=== PATIENT | male | born 1985 | race African-American/Black ===

== ENCOUNTER 2017-05-13 01:00 | Emergency (ER) | payer SELFPAY ==
[~2017-05-13] VITALS: Ht 182.9 cm; Wt 127.4 kg
[2017-05-13 02:58] LABS: HEMATOCRIT 42.6 % (38.0-50.0); MCH 29.7 PG (29.0-34.0); MCHC 33.6 G/DL (30.0-36.0); MCV 88.6 FL (86-99); MEAN PLAT.VOLUME 9.3 uM^3 (9.0-12.4); PLATELET COUNT 282 K/uL (156-360); RBC DIS.WIDTH-CV 12.3 % (11.8-14.6); RBC DIS.WIDTH-SD 40.5 % (39-53); RED BLOOD COUNT 4.81 M/uL (4.00-5.50); WHITE BLOOD COUNT 8.6 K/uL (4.1-10.2)
[2017-05-13 03:03] LABS: PROTHROMBIN TIME 10.6 SEC (10.2-12.9)
[2017-05-13 03:11] LABS: CHLORIDE 106 mEq/L (99-109); POTASSIUM 3.9 mEq/L (3.7-5.4); SODIUM 139 mEq/L (136-147)
[2017-05-13 03:13] LABS: GLUCOSE 111 mg/dL (70-99)
[2017-05-13 03:14] LABS: ANION GAP 12 MEQ/L (2-14)
[2017-05-13 03:15] LABS: TOTAL BILIRUBIN 0.1 mg/dL (0.0-1.0)
[2017-05-13 03:16] LABS: SERUM ETHYL ALCOHOL 143 mg/dL
[2017-05-13 03:17] LABS: ALKALINE PHOSPHATASE 49 IU/L (3-129); GFR ESTIMATE (CALCULATED) > 59 mL/min/
[2017-05-13 03:18] LABS: UREA NITROGEN (BUN) 10 mg/dL (9-23)
[2017-05-13 04:29] VITALS: BP 146/80
== END 2017-05-13 04:48 | disposition short-term general hospital (02) ==
LOC: EME → EDBD 01:00 → TRA 01:00 → EME 01:00 → TRA 04:48
PROVIDERS: Physician Assistant
PROC: 3E0234Z Introduction of Serum, Toxoid and Vaccine into Muscle, Percutaneous Approach (ICD-10-PCS; principal; 2017-05-13)
DX: S02.411A LeFort I fracture, initial encounter for closed fracture (principal); S02.412A LeFort II fracture, initial encounter for closed fracture; S02.19XA Other fracture of base of skull, initial encounter for closed fracture; S02.2XXA Fracture of nasal bones, initial encounter for closed fracture; S02.32XA Fracture of orbital floor, left side, initial encounter for closed fracture; S02.40CA Maxillary fracture, right side, initial encounter for closed fracture; S01.511A Laceration without foreign body of lip, initial encounter; S03.2XXA Dislocation of tooth, initial encounter; F10.129 Alcohol abuse with intoxication, unspecified; Y90.6 Blood alcohol level of 120-199 mg/100 ml; Y09 Assault by unspecified means; Y07.9 Unspecified perpetrator of maltreatment and neglect; F17.200 Nicotine dependence, unspecified, uncomplicated
CPT/HCPCS: 70450; 70486; 72125; 80053; 85027; 85610; 99281; 99285; G0480; J0690; J1580; J7050

== ENCOUNTER 2017-11-05 06:59 | Emergency (ER) | payer SELFPAY ==
[~2017-11-05] VITALS: Ht 190.5 cm; Wt 130.6 kg
[2017-11-05] MEDS ORDERED: XARELTO1 EACH PO (08:13)
[2017-11-05] MEDS ORDERED: ELIQUIS5 M1 PO (08:20)
[2017-11-05 08:44] VITALS: BP 126/102
== END 2017-11-05 08:45 | disposition home or self-care (01) ==
LOC: EME 06:59
DX: I82.412 Acute embolism and thrombosis of left femoral vein (principal); I82.432 Acute embolism and thrombosis of left popliteal vein
CPT/HCPCS: 93971; 99281; 99284

== ENCOUNTER 2017-11-14 06:29 | Emergency (ER) | payer SELFPAY ==
[~2017-11-14] VITALS: Ht 190.5 cm; Wt 134.7 kg
[~2017-11-14 06:29] MED LIST: ELIQUIS5 M1 PO; XARELTO1 EACH PO
[2017-11-14 06:36] VITALS: BP 165/95
[2017-11-14] MEDS ORDERED: ELIQUIS5 MG PO (07:54)
== END 2017-11-14 08:18 | disposition home or self-care (01) ==
LOC: EME 06:29
DX: I82.402 Acute embolism and thrombosis of unspecified deep veins of left lower extremity (principal); R07.9 Chest pain, unspecified; M79.602 Pain in left arm; Z79.01 Long term (current) use of anticoagulants; Z86.718 Personal history of other venous thrombosis and embolism
CPT/HCPCS: 99281; 99284

== ENCOUNTER 2017-12-17 14:33 | Inpatient (IN) | payer SELFPAY ==
[~2017-12-17] VITALS: Ht 190.5 cm; Wt 132.0 kg
[~2017-12-17 14:33] MED LIST changes: +ELIQUIS5 MG PO
[2017-12-17 16:55] LABS: HEMATOCRIT 40.1 % (38.0-50.0); HEMOGLOBIN 13.7 G/DL (12.5-16.6); MCHC 34.2 G/DL (30.0-36.0); MCV 87.7 FL (86-99); PLATELET COUNT 307 K/uL (156-360); RBC DIS.WIDTH-CV 13.2 % (11.8-14.6); RBC DIS.WIDTH-SD 42.5 % (39-53); RED BLOOD COUNT 4.57 M/uL (4.00-5.50); WHITE BLOOD COUNT 8.3 K/uL (4.1-10.2)
[2017-12-17 17:08] LABS: CHLORIDE 105 mEq/L (99-109); POTASSIUM 3.9 mEq/L (3.7-5.4); SODIUM 137 mEq/L (136-147)
[2017-12-17 17:10] LABS: GLUCOSE 88 mg/dL (70-99)
[2017-12-17 17:14] LABS: CREATININE 1.1 mg/dL (0.6-1.3); GFR ESTIMATE (CALCULATED) > 59 mL/min/ (58.99-99999)
[2017-12-17 17:15] LABS: UREA NITROGEN (BUN) 10 mg/dL (9-23)
[2017-12-17 17:16] LABS: PTT 31.6 SEC (25-37)
[2017-12-17] MEDS ORDERED: TYLENOL EXTRA500 MG PO (18:26)
[2017-12-17] MEDS ORDERED: EPSOM SALT120 GM TP (18:27)
[2017-12-17 20:01] VITALS: BP 140/81
[2017-12-17 23:56] VITALS: BP 128/69
[2017-12-18] VITALS (7 sets, daily range): BP systolic 125–140; BP diastolic 58–98
[2017-12-18 08:58] LABS: BASOPHIL (%) 1.3 % (0-1); BASOPHIL COUNT 0.1 K/uL (0-0.1); EOSINOPHIL (%) 2.9 % (0-5); EOSINOPHIL COUNT 0.2 K/uL (0-0.3); HEMATOCRIT 39.6 % (38.0-50.0); IMMATURE GRANULOCYTE (%) 0.2 % (0.0-0.7); LYMPHOCYTE (%) 63.5 % (15-42); MCH 29.1 PG (29.0-34.0); MCHC 32.8 G/DL (30.0-36.0); MCV 88.6 FL (86-99); MONOCYTE (%) 8.6 % (3-12); MONOCYTE COUNT 0.5 K/uL (0-0.8); NEUTROPHIL (%) 23.5 % (45-76); NEUTROPHIL COUNT 1.5 K/uL (1.8-6.4); PLATELET COUNT 302 K/uL (156-360); RBC DIS.WIDTH-CV 13.2 % (11.8-14.6); RBC DIS.WIDTH-SD 43.4 % (39-53); RED BLOOD COUNT 4.47 M/uL (4.00-5.50); WHITE BLOOD COUNT 6.3 K/uL (4.1-10.2)
[2017-12-18 09:06] LABS: PTT 69.8 SEC (25-37)
[2017-12-18 09:21] LABS: ALBUMIN 3.7 G/DL (3.2-4.8); ALKALINE PHOSPHATASE 49 IU/L (3-129); ALT (GPT) 33 IU/L (3-49); AST (GOT) 21 IU/L (2-34); CHLORIDE 105 MEQ/L (99-109); CREATININE 1.2 MG/DL (0.6-1.3); GFR ESTIMATE (CALCULATED) > 59 mL/min/ (58.99-99999); GLUCOSE 88 mg/dL (70-99); POTASSIUM 4.2 MEQ/L (3.7-5.4); SODIUM 137 MEQ/L (136-147); TOTAL BILIRUBIN 0.4 MG/DL (0.0-1.0); TOTAL PROTEIN 6.6 G/DL (6.4-8.3); UREA NITROGEN (BUN) 12 mg/dL (9-23)
[2017-12-19 03:46] VITALS: BP 120/87
[2017-12-19 05:56] LABS: HEMATOCRIT 41.5 % (38.0-50.0); HEMOGLOBIN 13.6 G/DL (12.5-16.6); MCH 29.1 PG (29.0-34.0); MCHC 32.8 G/DL (30.0-36.0); MCV 88.9 FL (86-99); PLATELET COUNT 296 K/uL (156-360); RBC DIS.WIDTH-CV 13.1 % (11.8-14.6); RBC DIS.WIDTH-SD 42.7 % (39-53); RED BLOOD COUNT 4.67 M/uL (4.00-5.50); WHITE BLOOD COUNT 5.2 K/uL (4.1-10.2)
[2017-12-19 07:15] VITALS: BP 136/93
[2017-12-19 11:27] VITALS: BP 140/81
[2017-12-19] MEDS ORDERED: LOVENOX120 MG/0.8 SC (11:36)
[2017-12-19] MEDS ORDERED: ENDOCET 5-3251 EACH PO (11:37)
[2017-12-19] MEDS ORDERED: COUMADIN10 MG PO (12:52)
== END 2017-12-19 16:05 | disposition home or self-care (01) | DRG 301 ==
LOC: EME 14:33 → EDOF 18:04 → ENRESERV 18:06 → 5SOUTH 19:35
PROVIDERS: Hospitalist; Physician Assistant
DX: I82.412 Acute embolism and thrombosis of left femoral vein (principal); M76.822 Posterior tibial tendinitis, left leg; M21.42 Flat foot [pes planus] (acquired), left foot; F17.210 Nicotine dependence, cigarettes, uncomplicated; E66.9 Obesity, unspecified; Z68.36 Body mass index [BMI] 36.0-36.9, adult; Z86.718 Personal history of other venous thrombosis and embolism
CPT/HCPCS: 71275; 73610; 80048; 80053; 85025; 85027; 85610; 85730; 93971; 99202; 99281; 99285; J1650

== ENCOUNTER 2017-12-24 03:32 | Emergency (ER) | payer SELFPAY ==
[~2017-12-24] VITALS: Ht 190.5 cm; Wt 135.4 kg
[~2017-12-24 03:32] MED LIST changes: +COUMADIN10 MG PO; +ENDOCET 5-3251 EACH PO; +EPSOM SALT120 GM TP; +LOVENOX120 MG/0.8 SC; +TYLENOL EXTRA500 MG PO
[2017-12-24] MEDS ORDERED: COUMADIN10 MG PO (04:42)
[2017-12-24 05:18] LABS: INTER. NORMALIZED RATIO 1.3
[2017-12-24 05:51] VITALS: BP 151/91
== END 2017-12-24 05:52 | disposition home or self-care (01) ==
LOC: EME 03:32
PROVIDERS: Physician Assistant
DX: I82.402 Acute embolism and thrombosis of unspecified deep veins of left lower extremity (principal); Z76.0 Encounter for issue of repeat prescription; Z51.81 Encounter for therapeutic drug level monitoring
CPT/HCPCS: 85610; 99281; 99283